=== PATIENT | male | born 1995 | race Caucasian/White ===

== ENCOUNTER 2022-12-11 08:35 | Outpatient (CLI) | payer BC, SELFPAY | END 2022-12-11 08:36 | disposition home or self-care (01) | PROVIDERS: Visit Provider Family Medicine | DX: Z00.00 Encounter for general adult medical examination without abnormal findings (principal); I10 Essential (primary) hypertension; E66.9 Obesity, unspecified; Z13.6 Encounter for screening for cardiovascular disorders | CPT/HCPCS: 80061; 80076; 84443 ==

== ENCOUNTER 2023-10-22 09:29 | Outpatient (CLI) | payer BC, SELFPAY | END 2023-10-22 09:30 | disposition home or self-care (01) | PROVIDERS: PCP Family Medicine; Visit Provider Family Medicine | DX: I10 Essential (primary) hypertension (principal); E66.9 Obesity, unspecified | CPT/HCPCS: 80053 ==

== ENCOUNTER 2023-11-20 14:11 | Outpatient (CLI) | payer BC, SELFPAY | END 2023-11-20 14:12 | disposition home or self-care (01) | PROVIDERS: PCP Family Medicine; Visit Provider Physician Assistant | DX: R10.13 Epigastric pain (principal) | CPT/HCPCS: 80076; 83690 ==

== ENCOUNTER 2024-09-29 09:45 | Outpatient (CLI) | payer BC, SELFPAY | END 2024-09-29 09:46 | disposition home or self-care (01) | LOC: NFLDREF 10-01 14:51 | PROVIDERS: PCP Family Medicine; Referring Provider Family Medicine; Visit Provider Family Medicine | DX: E78.1 Pure hyperglyceridemia (principal); I10 Essential (primary) hypertension; E66.9 Obesity, unspecified | CPT/HCPCS: 80053; 80061 ==